=== PATIENT | female | born 1980 | race Caucasian/White ===

== ENCOUNTER 2019-01-06 09:56 | Observation (INO) | payer MEDICAID, OTHER ==
[~2019-01-06] VITALS: Ht 180.3 cm; Wt 104.5 kg
[2019-01-06] VITALS (8 sets, daily range): BP systolic 125–177; BP diastolic 66–101
[2019-01-06 10:35] LABS: BASOPHILS # (AUTO) 0.1 X10'3 (0-0.2); BASOPHILS % (AUTO) 0.6 % (0-1); EOSINOPHILS # (AUTO) 0.1 X10'3 (0-0.9); EOSINOPHILS % (AUTO) 0.5 % (0-6); HEMATOCRIT 48.1 % (35.0-45.0); HEMOGLOBIN 16.7 g/dl (12.0-16.0); LYMPHOCYTES # (AUTO) 1.5 X10'3 (1.1-4.8); LYMPHOCYTES % (AUTO) 11.7 % (21-51); MEAN CORPUSCULAR HEMOGLOBIN 32.9 PG (27.0-31.0); MEAN CORPUSCULAR HGB CONC 34.8 g/dL (33.0-36.5); MEAN CORPUSCULAR VOLUME 94.7 FL (78-98); MEAN PLATELET VOLUME 7.4 FL (7.4-10.4); MONOCYTES # (AUTO) 0.8 X10'3 (0-0.9); MONOCYTES % (AUTO) 5.8 % (2-12); NEUTROPHILS # (AUTO) 10.5 X10'3 (1.8-7.7); NEUTROPHILS % (AUTO) 81.4 % (42-75); PLATELET COUNT 279 X10'3 (140-440); RED BLOOD COUNT 5.08 X10'6 (4.20-5.60); RED CELL DISTRIBUTION WIDTH 12.6 % (11.5-14.5); WHITE BLOOD COUNT 12.9 X10'3 (4.5-11.0)
[2019-01-06] MEDS ORDERED: morphine 4 MG/ML inj SYRINge IV ONE (10:35)
[2019-01-06] MEDS ORDERED: ondansetron 4mg rapidly disintigrating tab PO ONE (10:35)
[2019-01-06 10:50] LABS: ALANINE AMINOTRANSFERASE 32 U/L (12-78); ALBUMIN 4.5 G/DL (3.4-5.0); ALBUMIN/GLOBULIN RATIO 1.2 (1.1-1.5); ALKALINE PHOSPHATASE 100 IU/L (46-116); ANION GAP 14 (8-16); ASPARTATE AMINO TRANSFERASE 28 U/L (10-37); BILIRUBIN,TOTAL 0.7 MG/DL (0.1-1.0); BLOOD UREA NITROGEN 8 MG/DL (7-18); BUN/CREATININE RATIO 7.8 (6.6-38.0); CHLORIDE 99 MMOL/L (99-107); CREATININE 1.02 MG/DL (0.40-0.90); GLUCOSE 99 MG/DL (70-104); POTASSIUM 3.5 MMOL/L (3.5-5.1); SODIUM 137 MMOL/L (135-145); TOTAL CARBON DIOXIDE 24.4 MMOL/L (24-32); TOTAL PROTEIN 8.3 G/DL (6.4-8.2); eGFR 61 ML/MIN
[2019-01-06 11:22] LABS: URINE HCG NEGATIVE (NEG)
[2019-01-06 11:27] LABS: CLARITY,URINE CLEAR (Clear); COLOR,URINE YELLOW (Yellow); GLUCOSE, URINE NEGATIVE (Neg); KETONES,URINE NEGATIVE (Neg); LEUKOCYTE ESTERASE ,URINE NEGATIVE (Neg); NITRITES, URINE NEGATIVE (Neg); OCCULT BLOOD,URINE NEGATIVE (Neg); PH,URINE 7.5 (4.8-8.0); PROTEIN,URINE NEGATIVE (Neg); UA COLLECTION TYPE NON-SPECIFIED; UROBILINOGEN,URINE 0.2 E.U/dL (0.2-1.0)
[2019-01-06] MEDS ORDERED: normal saline 1000ml 1,000 ML IV SCH (12:13)
[2019-01-06] MEDS ORDERED: magnesium 2GM in 50ml NS 50 ML IV PRN (12:15)
[2019-01-06] MEDS ORDERED: potassium Cl 20 mEq SR tablet PO PRN ×2 (12:15)
[2019-01-06] MEDS ORDERED: docusate sod 100mg capsule PO PRN (12:15)
[2019-01-06] MEDS ORDERED: potassium CL 10mEq/100ml bag 100 ML IV PRN ×2 (12:15)
[2019-01-06] MEDS ORDERED: ondansetron/PF 4mg/2ml inj IV PRN ×3 (12:15→16:10)
[2019-01-06] MEDS ORDERED: morphine 2 MG/ML inj. syringe IV PRN ×2 (12:15)
[2019-01-06] MEDS ORDERED: magnesium 4gm in 100ml NS 100 ML IV PRN (12:15)
[2019-01-06] MEDS ORDERED: acetaminophen 325mg tablet PO PRN (12:15)
[2019-01-06] MEDS ORDERED: LIDOcaine 1% 30ml preserv. free vial ONE (13:13)
[2019-01-06] MEDS ORDERED: BUPIVAcaine/PF 2.5 mg/ml (0.25%) 30ml vial ONE (13:13)
[2019-01-06] MEDS ORDERED: ceFAZolin inj. 2,000 MG in dextrose 5%-water 100 ML IV ONE (13:15)
[2019-01-06] MEDS ORDERED: ringers solution, lacted 1,000 ML IV SCH (13:27)
[2019-01-06] MEDS ORDERED: proCHLORperazine 10 MG/2 ml inj IV PRN (13:30)
[2019-01-06] MEDS ORDERED: meperidine/PF 25mg/ml syringe IV PRN ×2 (13:30)
[2019-01-06] MEDS ORDERED: morphine 4 MG/ML inj SYRINge IV PRN ×2 (13:30)
[2019-01-06] MEDS ORDERED: sevoflurane 250ml liquid IH ONE (15:04)
[2019-01-06] MEDS ORDERED: neostigmine methylsulfate 1 MG/ML 10ml vial ONE (15:04)
[2019-01-06] MEDS ORDERED: dexamethasone sod phosphate 10mg/ml inj ONE (15:04)
[2019-01-06] MEDS ORDERED: glycopyrrolate 0.2mg/ml inj ONE (15:04)
[2019-01-06] MEDS ORDERED: fentaNYL/PF 50MCG/1 ML 2ML syringe ONE (15:05)
[2019-01-06] MEDS ORDERED: midazolam 2 mg/2 ml injection ONE (15:06)
[2019-01-06] MEDS ORDERED: LIDOcaine 2% (20mg/ml) 5ml vial ONE (15:08)
[2019-01-06] MEDS ORDERED: propofol inj 20 ML IV ONE (15:08)
[2019-01-06] MEDS ORDERED: rocuronium 10mg/ml inj IV ONE (15:08)
[2019-01-06] MEDS ORDERED: ondansetron/PF 4mg/2ml inj ONE (15:18)
[2019-01-06] MEDS ORDERED: ketorolac trometh. 30mg/ml inj. ONE (15:18)
[2019-01-06] MEDS ORDERED: NO HOME MEDS (15:24)
[2019-01-06] MEDS ORDERED: piperacillin/tazo 3.375gm/50ml 50 ML IV SCH (16:00)
--- NOTE | 2019-01-06 16:07 | NUR ---
Received from OR via , accompanied by Anesthesiologist DR PAGAN and report given by Anesthesiolgist. AWAKENS TO VOICE. VITALS STABLE. DRESSINGS DI. KENNETH PAIN. ABD SOFT.
[2019-01-06] MEDS ORDERED: HYDROcodone/acetaminophen 10/325mg tab PO PRN (16:10)
[2019-01-06] MEDS ORDERED: HYDROcodone/acetaminophen 5mg/325mg tablet PO PRN (16:10)
[2019-01-06] MEDS ORDERED: HYDROmorphone inj. 0.5 MG/0.5 ML DISP.SYRIN IV PRN (16:10)
[2019-01-06] MEDS: meperidine/PF 25mg/ml syringe IV PRN ×2 (16:12→16:27)
--- NOTE | 2019-01-06 16:54 | NUR ---
I have received report from DANIEL Butler and had the opportunity to ask questions and assume patient care.
--- NOTE | 2019-01-06 16:57 | NUR ---
Report called to receiving nurse. Transferred via BED Belongings . Special Issues communicated to receiving nurse. AWAKE AND ORIENTED. VITALS STABLE DRESSINGS DI. STATES PAIN IMPROVING. TO SURGICAL RM 356B AT THIS TIME.
[2019-01-06] MEDS ORDERED: HYDR-4383 PO (17:41)
--- NOTE | 2019-01-06 18:30 | NUR ---
received report from DANIEL Eddy; pt being prepared for discharge; informed in report pt is tolerating liquids & ambulating in room; pt states she is ready to go home
--- NOTE | 2019-01-06 18:53 | NUR ---
Problems reprioritized. Patient report given, questions answered & plan of care reviewed with Mariely RN.
--- NOTE | 2019-01-06 20:00 | NUR ---
pt discharge via w/c & with belongings
[2019-01-07] MEDS ORDERED: K and/or MAG REPLACEMENT MC SCH (08:00)
== END 2019-01-06 20:13 | disposition home or self-care (01) ==
LOC: ER 09:57 → SUR 3N 18:14
PROVIDERS: ADMIT Family Medicine; ATTEND Family Medicine
DX: K80.00 Calculus of gallbladder with acute cholecystitis without obstruction (principal); D72.829 Elevated white blood cell count, unspecified
CPT/HCPCS: 36415; 47562; 76700; 80053; 81003; 81025; 83605; 85025; 85610; 87040; 96374; 96375; 96376; 99284; G0378; J0690; J1100; J1885; J2001; J2175; J2250; J2270; J2405; J2704; J2710; J3010; J3490; J7060; J7120; A4215; A4618; A7000; J1170; J7030